=== PATIENT | female | born 1945 | race Caucasian/White ===

== ENCOUNTER 2016-11-15 05:42 | Inpatient (IN) ==
[2016-11-10 15:19] LABS: HEMOGLOBIN 14.7 g/dL (12.0-16.0); MCH 30.4 PG (27-31); MCHC 34.2 g/dL (33-37); MCV 88.8 FL (81-99); MPV 10.3 FL (7.4-10.4); RBC 4.84 XMIL (4.2-5.4)
--- NOTE | 2016-11-10 15:26 | EKG Report ---
Test Performed on : 11/10/2016 2:57:50 PM Test Reason : PAT Blood Pressure : / mmHG Vent. Rate : 087 BPM Atrial Rate : 087 BPM P-R Int : 228 ms QRS Dur : 092 ms QT Int : 390 ms P-R-T Axes : 071 057 065 degrees QTc Int : 469 ms Sinus rhythm. with 1st degree AV block. Possible Inferior infarct , age undetermined Abnormal ECG No previous ECGs available Confirmed by Keyona Braden MD ([id number]) on 11/11/2016 1:06:46 PM
[2016-11-10 15:42] LABS: AGAP 11; BUN 20 mg/dL (8-22); CALCIUM 9.3 mg/dL (8.8-10.2); CHLORIDE 94 mmol/L (98-107); COSMO 293; POTASSIUM 4.1 mmol/L (3.5-5.1); SODIUM 137 mmol/L (136-145); TCO2 32 mmol/L (25-35)
[2016-11-15] MEDS ORDERED: PEPCID ONE (05:46)
[2016-11-15] MEDS ORDERED: REGLAN ONE (05:46)
[2016-11-15] MEDS ORDERED: VANCOMYCIN 1 GM/NS 1 GM/250 ML IVPB ONE (05:46)
[2016-11-15] MEDS ORDERED: LR 1,000 ML ONE (05:46)
[2016-11-15] MEDS ORDERED: SENSORCAINE 0.25%/EPI 1:200,000 ONE (06:10)
[2016-11-15] MEDS ORDERED: HEPARIN ONE ×3 (06:10→07:53)
[2016-11-15] MEDS ORDERED: NS 2,000 ML ONE (06:10)
[2016-11-15] MEDS ORDERED: NITROGLYCERIN 50 MG/D5W 50 MG/250 ML IV.SOLN ONE (06:11)
[2016-11-15] MEDS ORDERED: KEFZOL ONE (06:19)
[2016-11-15] MEDS ORDERED: HURRICAINE SPRAY (DOSE) ONE (06:21)
[2016-11-15] MEDS ORDERED: SODIUM CHLORIDE 0.9% 30 ML ONE (06:33)
[2016-11-15] MEDS ORDERED: ROBINUL ONE (06:33)
[2016-11-15] MEDS ORDERED: ZOFRAN ONE (06:33)
[2016-11-15] MEDS ORDERED: XYLOCAINE-MPF 2% ONE (06:33)
[2016-11-15] MEDS ORDERED: NORCURON ONE ×2 (06:33→06:36)
[2016-11-15] MEDS ORDERED: NEO-SYNEPHRINE ONE (06:33)
[2016-11-15] MEDS ORDERED: QUELICIN (DOSE) ONE (06:33)
[2016-11-15] MEDS ORDERED: DIPRIVAN 1% ONE (06:34)
[2016-11-15] MEDS ORDERED: FENTANYL ONE (06:34)
[2016-11-15] MEDS ORDERED: NEOSTIGMINE ONE (07:56)
[2016-11-15 08:10] LABS: URINE MICRO REVIEW NEEDED? NO; URINE SOURCE CATH
[2016-11-15 08:13] LABS: BILIRUBIN URINE NEGATIVE (NEGATIVE); BLOOD URINE NEGATIVE (NEGATIVE); COLOR STRAW; GLUCOSE URINE 1000 mg/dL (NEGATIVE); LEUKOCYTES URINE NEGATIVE (NEGATIVE); NITRITE URINE NEGATIVE (NEGATIVE); PROTEIN URINE NEGATIVE (NEGATIVE); SP GRAVITY URINE 1.006; TURBIDITY URINE CLEAR (CLEAR); UR EPITHELIAL CELLS <10 /HPF (<10); URINE BACTERIA NEGATIVE /HPF; URINE RBC <10 /HPF (<10); URINE WBC <10 /HPF (<10); UROBILINOGEN URINE NORMAL (NORMAL)
[2016-11-15] MEDS ORDERED: NS 1,000 ML ONE (10:19)
[2016-11-15] MEDS ORDERED: HUMULIN R IV ONE (10:30)
[2016-11-15] MEDS ORDERED: BUPRENEX IV PRN (10:42)
[2016-11-15] MEDS ORDERED: ZOFRAN IV PRN (10:42)
[2016-11-15] MEDS: NORCO-10 PO PRN ×2 (14:00→21:00)
[2016-11-15] MEDS: HUMULIN R SUBQ SCH ×2 (16:19→21:07)
--- NOTE | 2016-11-15 17:16 | OPERATIVE NOTE ---
PROCEDURE DATE: 11/15/2016 PROCEDURE PERFORMED: Endovascular repair 5.5 cm infrarenal abdominal aortic aneurysm. SURGEON: Dr. Mckenzie. PRECISION LATHE OPERATOR: Dr. Freedman who assisted in exposure, access to the femoral arteries and ballooning of the graft. PRECISION LATHE OPERATOR: BRENDA Simpson. PREOP DIAGNOSIS: A 5.5 cm infrarenal abdominal aortic aneurysm. POSTOPERATIVE DIAGNOSIS: A 5.5 cm infrarenal abdominal aortic aneurysm. DESCRIPTION OF PROCEDURE: Satisfactory general endotracheal anesthesia received. The abdomen and groins were prepped and draped in a sterile fashion. An Ioban drape was used. Vancomycin was given. We made transverse incisions in the inferior abdominal creases, began on the left, incised the skin and carried our incision through Shai fascia and exposed the external oblique aponeurosis. We then dissected along the inguinal ligament, identified the common femoral artery as it came underneath the ligament. We surrounded with an umbilical tape and distally with a vessel loop. We did the same thing on the right side. We then gave the patient 10,000 units of heparin. We accessed the left femoral Seldinger technique, passed a 6-Montenegrin sheath. We then passed a Glidewire into the aorta. We had to use a Berenstein catheter to direct the wire up into the proximal aorta. We then passed our pigtail up. We shot an aortogram revealing the takeoff of the renals as well as the iliacs and we decided that we would use a 28 x 14 x 14 graft. We then on the right side put our again Seldinger technique 6-Montenegrin sheath, passed our Glidewire, Berenstein catheter and then the Paramjit wire. We then obtained the graft that I mentioned and passed it up to the renals. We shot a repeat study at the renals and oriented the main graft so that the gate would be anterolateral probably around the 10 o'clock position. We then unsheathed the proximal end. We then pulled our sheath back then pulled our pigtail back and switched to a Berenstein catheter but could not access the gate with the Berenstein and had to finally used a Contra-2 catheter which finally allowed us to enter the gate. We then replaced our pigtail, twirled the pigtail and we were happy that we were inside the graft. We then switched to a Paramjit wire. We put a 12-Montenegrin sheath on the left. Introduced the 14 x 10. We did shoot a retrograde arteriogram on the left before we pulled our pigtail to arturo the iliacs but we then obtained a 14 x 10 limb and accessed the gate and unsheathed it. We unsheathed the right side before we did the left. We then passed our aortic balloon up the right side and ballooned the proximal end. We passed a 14 x 4 balloon up the left side. We then ballooned the gate, ballooned the bifurcation and then into the graft in both iliacs. We replaced our pigtail, shot a completion aortogram showing no leak in the graft, satisfactory flow to the iliacs and we were about a centimeter below the renals. We were happy with the result. We then removed our devices and sheaths and closed the femoral arteries with 5-0 Prolene running stitches. We irrigated out both wounds with Kefzol- impregnated saline and closed the subcutaneous tissue in 2 layers of 2-0 Polysorb, closed the skin with a 4-0 Polysorb subcuticular stitch. Telfa and sterile OpSite were applied. She tolerated it well. Was sent to the recovery room in satisfactory condition. ESTIMATED BLOOD LOSS: 1000 mL. cc: Javier Mckenzie MD
[2016-11-15] MEDS: NS 1,000 ML IV SCH (18:06)
[2016-11-15] MEDS ORDERED: VANCOMYCIN 1 GM/NS 1 GM/250 ML IVPB IV SCH (19:00)
[2016-11-15] MEDS: LASIX PO SCH (20:17)
[2016-11-15] MEDS: RANEXA PO SCH (20:17)
[2016-11-15] MEDS: ZOCOR PO SCH (20:17)
[2016-11-16] MEDS: HUMULIN R SUBQ SCH ×5 (03:55→22:11)
[2016-11-16 04:38] LABS: MANUAL DIFF NEEDED? NO
[2016-11-16 04:56] LABS: BASO% 0.2 % (0.0-0.8); EOS# 0.11 X1000 (0.0-0.7); EOS% 1.9 % (0.0-10.0); HEMATOCRIT 34.7 % (37.0-47.0); HEMOGLOBIN 11.5 g/dL (12.0-16.0); LYMPH# 1.67 X1000 (1.2-3.4); LYMPH% 29.1 % (20.5-51.1); MCH 29.9 PG (27-31); MCHC 33.1 g/dL (33-37); MCV 90.4 FL (81-99); MONO# 0.72 X1000 (0.11-0.59); MONO% 12.5 % (1.7-9.3); MPV 10.3 FL (7.4-10.4); NEUT% 56.3 % (42.2-75.2); PLT 179 X1000 (130-400); RBC 3.84 XMIL (4.2-5.4)
[2016-11-16 05:10] LABS: AGAP 10; BUN 9 mg/dL (8-22); CALCIUM 7.8 mg/dL (8.8-10.2); CHLORIDE 101 mmol/L (98-107); COSMO 280; POTASSIUM 3.6 mmol/L (3.5-5.1); SODIUM 140 mmol/L (136-145); TCO2 29 mmol/L (25-35)
[2016-11-16] MEDS: NS 1,000 ML IV SCH (05:12)
[2016-11-16] MEDS ORDERED: NS 1,000 ML IV SCH (06:35)
[2016-11-16] MEDS: LASIX PO SCH ×2 (08:26→21:01)
[2016-11-16] MEDS: LOPRESSOR PO SCH (08:26)
[2016-11-16] MEDS: ALTACE PO SCH (08:26)
[2016-11-16] MEDS: RANEXA PO SCH ×2 (08:26→21:00)
[2016-11-16] MEDS: PLAVIX PO SCH (08:27)
[2016-11-16] MEDS: IMDUR PO SCH (08:27)
[2016-11-16] MEDS: MOBIC PO SCH (08:27)
[2016-11-16] MEDS ORDERED: INSULIN PEN NEEDLES ONE (09:08)
[2016-11-16] MEDS: LEVEMIR SUBQ SCH (09:10)
[2016-11-16] MEDS: NORCO-10 PO PRN (13:26)
[2016-11-16] MEDS: ZOCOR PO SCH (21:01)
[2016-11-17] MEDS: HUMULIN R SUBQ SCH (04:44)
[2016-11-17 07:50] VITALS: BP 115/72
[2016-11-17] MEDS: MOBIC PO SCH (08:25)
[2016-11-17] MEDS: PLAVIX PO SCH (08:25)
[2016-11-17] MEDS: RANEXA PO SCH (08:26)
[2016-11-17] MEDS: LASIX PO SCH (08:26)
[2016-11-17] MEDS: ALTACE PO SCH (08:26)
[2016-11-17] MEDS: IMDUR PO SCH (08:26)
[2016-11-17] MEDS: LOPRESSOR PO SCH (08:27)
[2016-11-17] MEDS: LEVEMIR SUBQ SCH (08:29)
== END 2016-11-17 09:50 | disposition home or self-care (01) ==
LOC: SURHOLD 05:42 → ICU 08:27 → 4N 11-16 18:32
PROVIDERS: ADMIT Surgery; ATTEND Surgery